=== PATIENT | male | born 1945 | race Caucasian/White ===

== ENCOUNTER → 2016-11-15 | Day surgery (SDC) | payer MEDICARE, OTHER ==
[~2016-11-15] VITALS: Ht 182.9 cm; Wt 75.7 kg
[~2016-11-15] MED LIST: CPAP INH; ECOTRIN325 MG PO; EFFEXOR XR75 MG PO; EYE VITAMIN-MI1 EACH PO; G-FENESIN400 MG PO; LIVALO1 MG PO; LOPRESSOR25 MG PO; NITROSTAT0.4 MG SL; NORCO 5-325 TA1 EACH; NORCO 5-325 TA1 EACH PO; PROTONIX40 MG PO; VENLAFAXINE HC225 MG PO; VITAMIN D1000 UNIT PO
--- NOTE | ~2016-11-15 | OR ---
PATIENT'S NAME: [facility] AGE: 71 Y [address] ROOM: [place] [id number] LOCATION: [facility] [place] ADMIT DATE: 11/15/2016 OR/Procedure Report DISCHARGE DATE: FAMILY PHYSICIAN: Giuseppe Quiroga ATTENDING PHYSICIAN: Royce Velzi SURGEON: Royce Veliz MD JUDICIAL CLERK: Renee Rosario PA-C DATE OF PROCEDURE: 11/15/2016 REFERRING PHYSICIAN: Dr. Ernie Buchanan at [place], [place]. PREOPERATIVE DIAGNOSIS: Symptomatic reducible right inguinal hernia. POSTOPERATIVE DIAGNOSIS: Right inguinal hernia with direct and indirect defect. PROCEDURES PERFORMED: Right inguinal herniorrhaphy with sac ligation and large ProLoop mesh plug and patch onlay of inguinal floor. ANESTHESIA: IV sedation with 40 mL 0.5% Marcaine with epinephrine/1% Xylocaine. SPECIMENS: Hernia sac, not sent. INDICATIONS FOR PROCEDURE: The patient is a pleasant 71-year-old gentleman, who is kindly referred by Dr. Buchanan at [place], [place] for surgical evaluation of a right groin pain. I agree with the referring diagnosis of a right inguinal hernia which is reducible. We discussed operative repair. DESCRIPTION OF PROCEDURE: After informed consent, the patient was taken to the operating room, and after IV sedation, the right inguinal region was prepped and draped into a sterile field. Local anesthetic infiltrated prior to the incision and then throughout the course of the procedure as needed. We made a transverse incision above and parallel to the right inguinal ligament, carried down through Ezra's fascia to expose the external oblique. The external oblique was divided through the external ring and control around the cord structures, was performed with the Cowden drain. We dissected the cremasteric muscles. Indirect hernia sac was identified. High sac ligation performed. We then inspected the floor, and there was attenuated aponeurosis, we scored it, created a properitoneal space, and we placed a large ProLoop mesh plug, and sewed it down to Efren's inferiorly and above to the conjoint tendon. Pre-shaped keyhole mesh was then laid over the floor, sewed down the pubic tubercle down to Efren's with a transition to the shelving edge of the inguinal ligament, and progressed lateral to the internal ring. Above, it was tacked down to the internal oblique aponeurosis, the nerve indeed and the cord PATIENT'S NAME: [facility]H [facility] AGE: 71 Y [address] ROOM: [place], [place] [address] LOCATION: [facility] [place] ADMIT DATE: 11/15/2016 OR/Procedure Report DISCHARGE DATE: FAMILY PHYSICIAN: Giuseppe Quiroga ATTENDING PHYSICIAN: Royce Veliz structures went through the defect in the mesh. We closed the external with 2- 0 Vicryl, Ezra's with 3-0 Vicryl, and the skin with subcuticular 4-0 Vicryl. Steri-Strips and sterile dressings applied. The patient tolerated the procedure well and was transferred to the recovery room in stable condition. ROYCE VELIZ MD WTS/modl /[id number] d: 11/30/16 1656 t: 12/20/16 1733, OPERATIVE SUMMARY
== END | disposition disaster alternative care site (69) ==
LOC: GPOC 11-13 16:00 → GSDC 07:16 → GPOC 16:00
PROC: 0YU50JZ Supplement Right Inguinal Region with Synthetic Substitute, Open Approach (ICD-10-PCS; principal; 2016-11-15)
DX: K40.90 Unilateral inguinal hernia, without obstruction or gangrene, not specified as recurrent (principal); I10 Essential (primary) hypertension; E78.5 Hyperlipidemia, unspecified; I25.2 Old myocardial infarction; F41.9 Anxiety disorder, unspecified; F32.9 Major depressive disorder, single episode, unspecified; Z79.82 Long term (current) use of aspirin; Z79.899 Other long term (current) drug therapy; Z88.0 Allergy status to penicillin; Z88.8 Allergy status to other drugs, medicaments and biological substances; Z90.49 Acquired absence of other specified parts of digestive tract; Z90.79 Acquired absence of other genital organ(s); Z95.5 Presence of coronary angioplasty implant and graft; Z98.890 Other specified postprocedural states
CPT/HCPCS: C1781; J1956; J2405; J7120

== ENCOUNTER → 2016-12-18 | Outpatient (CLI) | payer MEDICARE, OTHER | LOC: LGSOS 11:11 | DX: I49.3 Ventricular premature depolarization (principal) ==

== ENCOUNTER → 2016-12-18 | Outpatient (CLI) | payer MEDICARE, OTHER | END | disposition disaster alternative care site (69) | LOC: GCAR 10:44 | DX: I49.3 Ventricular premature depolarization (principal) ==